=== PATIENT | male | born 1980 | race African-American/Black ===

== ENCOUNTER 2019-11-14 09:53 | Emergency (ER) | payer SELFPAY ==
[~2019-11-14] VITALS: Ht 188 cm; Wt 84.1 kg
[2019-11-14 09:59] VITALS: BP 143/73
== END 2019-11-14 10:12 ==
LOC: ER 09:54
DX: Z00.00 Encounter for general adult medical examination without abnormal findings (principal); F15.90 Other stimulant use, unspecified, uncomplicated; Z72.89 Other problems related to lifestyle
CPT/HCPCS: 99283

== ENCOUNTER 2023-10-14 02:59 | Emergency (ER) | payer MEDICAID ==
[~2023-10-14] VITALS: Ht 188 cm; Wt 90.9 kg
[2023-10-14 03:01] VITALS: BP 148/101; PULSE 71; RESP 16; O2SAT 99
[2023-10-14 05:19] VITALS: TEMP 97.7
== END 2023-10-14 05:21 | disposition home or self-care (01) ==
LOC: ER 02:59
DX: F41.9 Anxiety disorder, unspecified (principal); F20.9 Schizophrenia, unspecified
CPT/HCPCS: 99283

== ENCOUNTER 2023-10-14 17:01 | Emergency (ER) | payer MEDICAID ==
[~2023-10-14] VITALS: Ht 188 cm; Wt 93.2 kg
[2023-10-14 19:22] VITALS: BP 135/86; PULSE 80; RESP 12; O2SAT 94
[2023-10-14 19:34] LABS: BILIRUBIN,URINE NEGATIVE (Neg); CLARITY,URINE CLEAR (Clear); COLOR,URINE YELLOW (Yellow); GLUCOSE, URINE NEGATIVE (Neg); KETONES,URINE NEGATIVE (Neg); LEUKOCYTE ESTERASE ,URINE NEGATIVE (Neg); NITRITES, URINE NEGATIVE (Neg); OCCULT BLOOD,URINE NEGATIVE (Neg); PROTEIN,URINE NEGATIVE (Neg); UROBILINOGEN,URINE 0.2 E.U/dL (0.2-1.0)
[2023-10-14 19:36] LABS: ALANINE AMINOTRANSFERASE 19 U/L (12-78); ALBUMIN 3.6 G/DL (3.4-5.0); ALKALINE PHOSPHATASE 64 IU/L (46-116); ANION GAP 7 (8-16); ASPARTATE AMINO TRANSFERASE 17 U/L (10-37); BILIRUBIN,TOTAL 0.9 MG/DL (0.1-1.0); BLOOD UREA NITROGEN 11 MG/DL (7-18); BUN/CREATININE RATIO 10.9 (10.0-20.0); CALCIUM 8.8 MG/DL (8.5-10.1); CHLORIDE 103 MMOL/L (99-107); CREATININE 1.01 MG/DL (0.60-1.10); ETHANOL < 10 MG/DL (<10); GLUCOSE 129 MG/DL (70-104); POTASSIUM 3.8 MMOL/L (3.5-5.1); SODIUM 141 MMOL/L (135-145); TOTAL CARBON DIOXIDE 31.2 MMOL/L (24-32); TOTAL PROTEIN 7.1 G/DL (6.4-8.2); eCRCL 111 ML/MIN; eGFR > 90 ML/MIN
[2023-10-14 19:37] LABS: URINE AMPHETAMINE SCREEN POSITIVE (Neg); URINE BARBITUATE SCREEN NEGATIVE (Neg); URINE BENZODIAZEPINES SCREEN NEGATIVE (Neg); URINE CANNABINOID SCREEN NEGATIVE (Neg); URINE COCAINE SCREEN NEGATIVE (Neg); URINE METHADONE SCREEN NEGATIVE (Neg); URINE OPIATE SCREEN NEGATIVE (Neg); URINE PHENCYCLIDINE SCREEN NEGATIVE (Neg)
[2023-10-14 19:38] LABS: ACETAMINOPHEN < 2.0 UG/ML (10-30)
[2023-10-14 19:41] LABS: UA COLLECTION TYPE CLN CATCH MIDSTREAM
[2023-10-14 20:12] LABS: BASOPHILS % (AUTO) 0.7 % (0-1); EOSINOPHILS # (AUTO) 0.2 X10'3 (0-0.9); EOSINOPHILS % (AUTO) 4.9 % (0-6); LYMPHOCYTES # (AUTO) 1.8 X10'3 (1.1-4.8); LYMPHOCYTES % (AUTO) 37.8 % (21-51); MEAN CORPUSCULAR HEMOGLOBIN 27.9 PG (27.0-31.0); MEAN CORPUSCULAR HGB CONC 32.4 g/dL (33.0-36.5); MEAN PLATELET VOLUME 9.1 FL (7.4-10.4); MONOCYTES # (AUTO) 0.4 X10'3 (0-0.9); NEUTROPHILS # (AUTO) 2.3 X10'3 (1.8-7.7); NEUTROPHILS % (AUTO) 48.6 % (42-75); PLATELET COUNT 348 X10'3 (140-440); RED BLOOD COUNT 4.65 X10'6 (4.70-6.10); RED CELL DISTRIBUTION WIDTH 14.5 % (11.5-14.5); WHITE BLOOD COUNT 4.8 X10'3 (4.5-11.0)
[2023-10-14 21:10] VITALS: TEMP 97.8
== END 2023-10-14 21:10 | disposition home or self-care (01) ==
LOC: ER 17:01
DX: R44.2 Other hallucinations (principal); Z59.00 Homelessness unspecified; F20.9 Schizophrenia, unspecified; F15.10 Other stimulant abuse, uncomplicated; Z79.899 Other long term (current) drug therapy; Z20.822 Contact with and (suspected) exposure to COVID-19
CPT/HCPCS: 36415; 80053; 80305; 80320; 80329; 81003; 85025; 87811; 99283

== ENCOUNTER 2023-10-14 22:59 | Emergency (ER) | payer MEDICAID ==
[~2023-10-14] VITALS: Ht 182.9 cm; Wt 81.8 kg
[2023-10-14 23:01] VITALS: BP 163/95; PULSE 92; RESP 18; TEMP 97.8; O2SAT 98
== END 2023-10-14 23:23 | disposition home or self-care (01) ==
LOC: ER 23:00
DX: R03.0 Elevated blood-pressure reading, without diagnosis of hypertension (principal); F22 Delusional disorders; F20.9 Schizophrenia, unspecified
CPT/HCPCS: 99283

== ENCOUNTER 2023-10-28 22:45 | Emergency (ER) | payer MEDICAID ==
[~2023-10-28] VITALS: Ht 182.9 cm; Wt 81.0 kg
[2023-10-28 22:47] VITALS: TEMP 98
[2023-10-29 08:33] VITALS: BP 126/86; PULSE 80; RESP 18; O2SAT 99
== END 2023-10-29 08:40 | disposition home or self-care (01) ==
LOC: ER 22:46
DX: M79.604 Pain in right leg (principal); F15.90 Other stimulant use, unspecified, uncomplicated; Z00.00 Encounter for general adult medical examination without abnormal findings; Z59.00 Homelessness unspecified; Z72.89 Other problems related to lifestyle
CPT/HCPCS: 99281; 99283

== ENCOUNTER 2023-12-12 17:15 | Emergency (ER) | payer MEDICAID ==
[~2023-12-12] VITALS: Ht 188 cm; Wt 81.8 kg
[2023-12-12] MEDS: OLANZapine 5mg rapidly disint. tablet PO ONE (17:20)
[2023-12-12 17:51] VITALS: RESP 16
[2023-12-12] MEDS: normal saline 1000ML IV soln IVB ONE (19:37)
[2023-12-12 19:41] LABS: BASOPHILS % (AUTO) 0.7 % (0-1); EOSINOPHILS # (AUTO) 0.1 X10'3 (0-0.9); HEMATOCRIT 43.4 % (42.0-52.0); HEMOGLOBIN 14.2 g/dl (14.0-17.9); LYMPHOCYTES # (AUTO) 2.2 X10'3 (1.1-4.8); LYMPHOCYTES % (AUTO) 35.5 % (21-51); MEAN CORPUSCULAR HEMOGLOBIN 27.8 PG (27.0-31.0); MEAN CORPUSCULAR HGB CONC 32.7 g/dL (33.0-36.5); MEAN CORPUSCULAR VOLUME 84.9 FL (78-98); MEAN PLATELET VOLUME 7.7 FL (7.4-10.4); MONOCYTES # (AUTO) 0.4 X10'3 (0-0.9); MONOCYTES % (AUTO) 6.4 % (2-12); NEUTROPHILS # (AUTO) 3.4 X10'3 (1.8-7.7); NEUTROPHILS % (AUTO) 55.4 % (42-75); PLATELET COUNT 256 X10'3 (140-440); RED BLOOD COUNT 5.11 X10'6 (4.70-6.10); RED CELL DISTRIBUTION WIDTH 13.3 % (11.5-14.5); WHITE BLOOD COUNT 6.1 X10'3 (4.5-11.0)
[2023-12-12 19:53] LABS: ALBUMIN 4.1 G/DL (3.4-5.0); ANION GAP 2 (8-16); BLOOD UREA NITROGEN 12 MG/DL (7-18); BUN/CREATININE RATIO 11.2 (10.0-20.0); CALCIUM 9.8 MG/DL (8.5-10.1); CHLORIDE 101 MMOL/L (99-107); CREATININE 1.07 MG/DL (0.60-1.10); ETHANOL < 10 MG/DL (<10); GLUCOSE 106 MG/DL (70-104); MAGNESIUM 1.8 MG/DL (1.5-2.4); POTASSIUM 4.1 MMOL/L (3.5-5.1); SODIUM 138 MMOL/L (135-145); eCRCL 104 ML/MIN; eGFR > 90 ML/MIN
[2023-12-13 06:03] VITALS: BP 110/80; PULSE 66; O2SAT 100
[2023-12-13 08:37] LABS: BILIRUBIN,URINE SMALL (Neg); CLARITY,URINE CLOUDY (Clear); GLUCOSE, URINE NEGATIVE (Neg); KETONES,URINE NEGATIVE (Neg); LEUKOCYTE ESTERASE ,URINE NEGATIVE (Neg); OCCULT BLOOD,URINE NEGATIVE (Neg); PROTEIN,URINE TRACE mg/dl (Neg)
[2023-12-13 08:42] LABS: COLOR,URINE DARK YELLOW (Yellow); NITRITES, URINE NEGATIVE (Neg); UA COLLECTION TYPE CLN CATCH MIDSTREAM
[2023-12-13 08:47] LABS: URINE AMPHETAMINE SCREEN POSITIVE (Neg); URINE BARBITUATE SCREEN NEGATIVE (Neg); URINE BENZODIAZEPINES SCREEN NEGATIVE (Neg); URINE CANNABINOID SCREEN NEGATIVE (Neg); URINE COCAINE SCREEN NEGATIVE (Neg); URINE METHADONE SCREEN NEGATIVE (Neg); URINE PHENCYCLIDINE SCREEN NEGATIVE (Neg)
[2023-12-13 08:57] LABS: MUCUS STRANDS MANY /LPF (Neg); SQUAMOUS EPITHELIAL CELL,UR FEW /LPF (FEW)
[2023-12-13 09:01] LABS: BACTERIA,URINE FEW /HPF (Neg); WBC,URINE 0-4 /HPF (0-4)
[2023-12-13 10:38] VITALS: TEMP 97.8
== END 2023-12-13 10:42 | disposition home or self-care (01) ==
LOC: ER 17:15
DX: F15.10 Other stimulant abuse, uncomplicated (principal); Z20.822 Contact with and (suspected) exposure to COVID-19; G93.41 Metabolic encephalopathy; R79.89 Other specified abnormal findings of blood chemistry
CPT/HCPCS: 36415; 80048; 80305; 80320; 81001; 83735; 85025; 87811; 99284; J7030

== ENCOUNTER 2024-03-01 04:35 | Emergency (ER) | payer MEDICAID ==
[~2024-03-01] VITALS: Ht 188 cm; Wt 90.9 kg
[2024-03-01 04:37] VITALS: TEMP 98.6
[2024-03-01] MEDS ORDERED: QUET100T34 PO ×2 (05:07→05:08)
[2024-03-01 05:27] VITALS: BP 149/93; PULSE 109; RESP 21; O2SAT 99
== END 2024-03-01 05:20 | disposition home or self-care (01) ==
LOC: ER 04:36
DX: F15.10 Other stimulant abuse, uncomplicated (principal); F29 Unspecified psychosis not due to a substance or known physiological condition; F20.9 Schizophrenia, unspecified; Z72.89 Other problems related to lifestyle; Z59.00 Homelessness unspecified; Z79.899 Other long term (current) drug therapy
CPT/HCPCS: 99283